=== PATIENT | female | born 1975 | race Caucasian/White ===

== ENCOUNTER 2021-11-16 15:15 | Outpatient (RCR) | payer OTHER, SELFPAY ==
--- NOTE | 2021-11-03 17:08 | PTOPEVAL ---
Thank you for referring Lidya Sutherland to [facility].? The patient is scheduled to be seen for therapy? 1x/week for 2-3 weeks. Please review, sign, date and return this plan of care WENDIE. I agree with and certify that the following plan of care is medically necessary. Referring Physician Date Attending Provider: Skyler Adam MD Diagnosis BPPV Onset 2017 Additional Evaluation Detail 2019- fall from dizziness. 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 She feels off balance. Contributing issues can be looking at her phone or looking down, quick turning, changing positions quickly. 3-5 falls in the past 6 months Previous Treatments For This Problem chiro treatment for 1 1/2 yr Pain Assessment Self Report 0/10 Cervical and Lumbar ROM Cervical ROM Cervical Flexion (0-60) 45:Active in Degrees Cervical Extension (0-70) 65:Active in Degrees Cervical Lateral Flexion Right (0-50) 35Active in Degrees Cervical Lateral Flexion Left (0-50) 25*Active in Degrees Cervical ROM Comments tightness Posture Posture Sitting Position Head/C-Spine Posture Forward Head Thoracic Spine Posture Increased Kyphosis Shoulder Posture (L) Rounded,(R) Rounded Scapula Posture (L) Winged,(R) Winged,(L) Tipped,(R) Tipped Balance Assessment Dynamic Gait Index Total Score (24/24) Vestibular Evaluation Vestibular Medical Information Past Vestibular History Falls,Visual Issues Medical History Comments lazy eye x 5 surgeries Recent Symptoms Falls,Loss of Balance,Vision Changes Other Symptoms Comments supine BP: 120/61 sitting BP: 127/71 standing BP: 119/89 Previous Medical Care/Testing ENT Hearing Changes Gradual Hearing Changes,Right, Tinnitus Hearing Changes Comments fullness in ear Symptoms Increase Bend Forward,Looking Side to Side,Sitting up in Bed,Stand up Quickly Symptoms Decrease Medication,Sitting Still Types of Symptoms Imbalanced/Unsteady Vestibular Testing Smooth Pursuits Normal,Abnormal Saccades Undershoots Sitting Head Thrust Left Positive Gaze Stabilization with
--- NOTE | 2021-12-15 12:47 | PCPTNOTE ---
Admitting Provider: Attending Provider: Skyler Adam MD Patient:Lidya Sutherland Date of :1975 Physical Therapy Discharge Summary Patient has not returned for any further treatments since 11/16/2021, therefore she will be discharged at this time. Patient?s initial visit was on 11/03/2021 16:00 and she had a total of 2 visits. The goals have been partially met. Thank you for referring this patient to [facility]. Please review, sign, date and return this discharge summary WENDIE. I have been updated about the patient's current status and I agree with discharge from the above service at this time. Referring Physician Date
== END 2021-12-15 14:04 | disposition home or self-care (01) ==
LOC: ANHPT 15:15
PROVIDERS: Visit Provider Otolaryngology
DX: H81.10 Benign paroxysmal vertigo, unspecified ear (principal)
CPT/HCPCS: 97112; 97162